=== PATIENT | female | born 1930 | race African-American/Black ===

== ENCOUNTER 2016-10-16 12:35 | Inpatient (IN) ==
[2016-10-16 13:36] LABS: BASO% 0.2 % (0.0-0.8); EOS# 0.08 X1000 (0.0-0.7); EOS% 0.4 % (0.0-10.0); HEMATOCRIT 35.9 % (37.0-47.0); HEMOGLOBIN 12.1 g/dL (12.0-16.0); IMM GRAN% 0.5 % (0.0-0.5); LYMPH# 0.76 X1000 (1.2-3.4); LYMPH% 4.2 % (20.5-51.1); MANUAL DIFF NEEDED? NO; MCHC 33.7 g/dL (33-37); MCV 89.1 FL (81-99); MONO% 8.7 % (1.7-9.3); MPV 9.8 FL (7.4-10.4); PLT 501 X1000 (130-400); RBC 4.03 XMIL (4.2-5.4)
[2016-10-16 14:28] LABS: AGAP 14; ALBUMIN 3.3 g/dL (3.5-5.0); ALKALINE PHOSPHATASE 110 U/L (32-104); BUN 19 mg/dL (8-22); CALCIUM 9.3 mg/dL (8.8-10.2); CHLORIDE 94 mmol/L (98-107); COSMO 273; GOT 26 U/L (10-30); GPT 19 U/L (10-36); POTASSIUM 3.9 mmol/L (3.5-5.1); SODIUM 134 mmol/L (136-145); TCO2 26 mmol/L (25-35); TOTAL PROTEIN 6.8 g/dL (6.3-8.3)
[2016-10-16 14:51] LABS: BILIRUBIN URINE NEGATIVE (NEGATIVE); BLOOD URINE 2+ (NEGATIVE); CLARITY SL. CLOUDY (CLEAR); COLOR AMBER; GLUCOSE URINE NEGATIVE (NEGATIVE); LEUKOCYTES URINE 1+ (NEGATIVE); NITRITE URINE NEGATIVE (NEGATIVE); PH URINE 6.5; PROTEIN URINE 1+(30 mg/dL) mg/dL (NEGATIVE); SP GRAVITY URINE 1.015; UROBILINOGEN URINE 1+(1 mg/dL)
[2016-10-16 14:58] LABS: URINE WBC <10 /HPF (<10)
[2016-10-16 14:59] LABS: URINE CULTURE PL NEEDED? YES; URINE EPITHELIAL CELLS >10 /HPF (<10); URINE SOURCE CLEAN CATCH
--- NOTE | 2016-10-16 16:10 | Diag Imaging Result Document ---
PROCEDURE NAME: ANGIOGRAM/PULMONARY ARTERIES - 10/16/2016 CTA CHEST: COMPARISON: 04/27/2016. FINDINGS: There is no evidence of pulmonary embolism. There is patchy aortic atherosclerotic calcification, but there is no evidence of aneurysm. The aorta is very tortuous and is stable. There is no evidence of aortic dissection. Similar to the previous study, there is mediastinal and hilar lymphadenopathy. It is nonspecific and may be reactive. There is stable cardiomegaly. There is advanced pulmonary emphysema. There is right basilar atelectasis as well as dense infiltrate in the right lower lobe. On the right, this is seen on the previous study but it is much less severe. There is atelectasis at the left lung base, but it is actually better than the previous study. There is a large focal density at the superior aspect of the left lower lobe that is vaguely masslike. This was not clearly present on the previous study. It measures about 4 x 2.6 cm axially. This certainly may represent a focal infectious consolidation. At least a repeat CT is recommended in 3 months based on [place] [employer] criteria, to assure resolution or stability. There is a smaller 1 cm nodule in the inferior left upper lobe on image 61 of series 6 that is approximately stable. There are severe scoliosis and degenerative changes. This is stable. IMPRESSION: 1. Severe emphysema. 2. Dense atelectasis and infiltrate at the right lung base and milder atelectasis at the left lung base. 3. Development of a vaguely masslike large rounded density at the superior aspect of the left lower lobe that certainly may be infectious. However, continued surveillance is recommended. Please see above discussion. 4. Stable, smaller nodule in the anterior aspect of the left upper lobe. 5. Mediastinal and hilar lymphadenopathy that is nonspecific but it is similar to the previous study and may be reactive. 6. No evidence of pulmonary embolism. 7. Other incidental/nonacute findings detailed above.
[2016-10-16] MEDS ORDERED: ROCEPHIN 1 GM/NS 1 GM/50 ML IVPB IV ONE (16:29)
[2016-10-16] MEDS ORDERED: ZITHROMAX 500 MG/NS 500 MG/250 ML IVPB IV SCH (16:30)
[2016-10-16] MEDS ORDERED: ROCEPHIN 1 GM/NS 1 GM/50 ML IVPB IV SCH (17:30)
[2016-10-16] MEDS ORDERED: LASIX PO PRN (20:06)
[2016-10-16] MEDS ORDERED: ZOFRAN IV PRN (20:07)
[2016-10-16] MEDS: NEURONTIN PO SCH (21:20)
[2016-10-16] MEDS: TYLENOL PO PRN (21:20)
[2016-10-16] MEDS: CARDIZEM CD PO SCH (21:20)
[2016-10-16] MEDS: LIORESAL PO SCH (21:21)
[2016-10-16] MEDS: ROCEPHIN 1 GM/NS 1 GM/50 ML IVPB IV SCH (21:22)
[2016-10-16] MEDS: NS 1,000 ML IV SCH (21:22)
[2016-10-17] MEDS: ULTRACET 37.5MG/325MG PO PRN (02:37)
[2016-10-17 06:03] LABS: HEMATOCRIT 32.3 % (37.0-47.0); HEMOGLOBIN 10.7 g/dL (12.0-16.0); MCH 29.8 PG (27-31); MCHC 33.1 g/dL (33-37); MPV 9.7 FL (7.4-10.4); RBC 3.59 XMIL (4.2-5.4)
[2016-10-17 06:38] LABS: AGAP 11; ALBUMIN 2.7 g/dL (3.5-5.0); ALKALINE PHOSPHATASE 115 U/L (32-104); BUN 10 mg/dL (8-22); CALCIUM 8.7 mg/dL (8.8-10.2); CHLORIDE 102 mmol/L (98-107); COSMO 277; GOT 26 U/L (10-30); GPT 19 U/L (10-36); POTASSIUM 3.6 mmol/L (3.5-5.1); SODIUM 139 mmol/L (136-145); TCO2 26 mmol/L (25-35); TOTAL PROTEIN 6.6 g/dL (6.3-8.3)
[2016-10-17] MEDS: NEURONTIN PO SCH ×3 (09:05→20:24)
[2016-10-17] MEDS: DITROPAN XL PO SCH ×2 (09:06→09:16)
[2016-10-17] MEDS: LIORESAL PO SCH ×3 (09:06→20:24)
[2016-10-17] MEDS: CARDIZEM CD PO SCH ×2 (09:06→20:24)
--- NOTE | 2016-10-17 11:00 | PROGRESS NOTE ---
DATE: 10/17/2016 SUBJECTIVE: The patient notes that she hurt all night because she did not have her pain medication this morning. Her daughter is concerned that she has not had her stool softener this morning; however, it is 6:30 in the morning. Otherwise, patient notes that her breathing is a little bit better. Denies any GI or issues currently. Denies any fevers overnight. OBJECTIVE: Vital signs: Temperature current 99.2, T-max 101.3 degrees at 8 p.m. on 10/16, pulse 109-114, respiratory 18, BP 180/89, saturation 93% on 3 L. General: Patient is awake, alert. She is currently in no respiratory distress. She is pleasant to talk with. Neck: Supple. CV: Regular rate. Chest: Much more improved than last night. No wheezing currently. Good air movement. Abdomen: Soft. Extremities: Moves all extremities. Neurologic: No changes. LABS: WBCs 15, hemoglobin and hematocrit 10 and 30. CMP normal. Micro growing gram-negative rods. Sputum culture pending. ASSESSMENT: 1. Urinary tract infection with gram-negative rods. Continue Rocephin. 2. Bilateral pneumonia. Continue Rocephin. 3. Chronic pain. Continue fentanyl. Will continue her laxative of choice. 4. Chronic neuropathy. 5. Hypertension. PLAN: We will continue patient's current medications. We will continue to follow her cultures. Continue to treat her for sepsis. Further orders as needed. cc: Richard Diallo MD
[2016-10-17] MEDS: COLACE PO SCH ×2 (11:57→20:24)
[2016-10-17] MEDS: NS 1,000 ML IV SCH (11:58)
--- NOTE | 2016-10-17 13:18 | HISTORY AND PHYSICAL ---
CHIEF COMPLAINT: Shortness of breath. HISTORY OF PRESENT ILLNESS: Patient is an 86-year-old, female, who presented to the emergency department with increased work of breathing, cough, congestion, shortness of breath. She notes that her symptoms have been going on for a day or two. They have continued to worsen. She has not been taking medications at home. Denies any production to her cough. States that she has been sick 3 or 4 days. However her story is very difficult to follow, because she then notes that a week or two ago she was coughing up blood and had some headaches. This continued to improve and then she started developing drainage, which apparently led to worsening shortness of breath 3-4 days ago. Although as noted, the story is very difficult to follow. She currently is on 3 L of oxygen at home. REVIEW OF SYSTEMS: As noted above. Hemoptysis 2 weeks ago, but apparently has resolved, but now she has a cough that is only occasionally productive of normal-colored sputum. Denies any chest pain, palpitations. Denies any current fevers or chills. Denies any dysuria, frequency, urgency. Denies any constipation, melena, hematochezia. Denies any weight loss or weight gain. Does note that she has chronic muscle aches, but this has not changed. PAST MEDICAL HISTORY: Hypertension. Chronic neuropathy. Chronic pain. ALLERGIES: No known drug allergies. MEDICATIONS: Baclofen t.i.d., Cardizem CD 180, Lasix 20, Neurontin 600 t.i.d., Ditropan 5 daily, fentanyl patch. She was recently started on Levaquin and tramadol. FAMILY HISTORY: Noncontributory. SOCIAL HISTORY: Patient lives at home. She is cared for by her family. Her primary care is ELEUTERIO Eduardo. PHYSICAL EXAMINATION: VITAL SIGNS: Temp 99, T-max 101.4 degrees, pulse 110, respiratory rate 10, BP 153/64 and sat 94% on 4 L. GENERAL: Patient is awake, alert. She is currently in minimal, if any, respiratory distress. Speech appears regular. Memory appears intact. NECK: Supple. CV: Regular rate. CHEST: Relatively clear. ABDOMEN: Soft. EXTREMITIES: Moves all extremities. NEUROLOGIC: No changes. LABS: WBCs 18, hemoglobin and hematocrit 12 and 35. D-dimer 5.2. Sodium 134, glucose 138, BNP 481, albumin 3.3. ASSESSMENT: 1. Urinary tract infection with microscopic red blood cells and white blood cells. 2. Leukocytosis. 3. Fever. 4. Sepsis, uncertain origin. Certainly could be from her dense lower lobe infiltrates and pneumonia, or could be from a urinary tract source. We will place her on antibiotics and follow. 5. Hypertension. 6. Chronic pain. 7. Bilateral lower lobe pneumonia. 8. Elevated D-dimer with a negative computed tomography angiogram. PLAN: We will check ultrasound of her bilateral lower extremities to rule out DVT and will follow. cc: Richard Diallo MD
[2016-10-17] MEDS: ROCEPHIN 1 GM/NS 1 GM/50 ML IVPB IV SCH (20:24)
[2016-10-17] MEDS: TYLENOL PO PRN (23:00)
[2016-10-18] MEDS: NS 1,000 ML IV SCH ×2 (01:20→14:59)
[2016-10-18 06:38] LABS: AGAP 10; ALBUMIN 2.5 g/dL (3.5-5.0); ALKALINE PHOSPHATASE 184 U/L (32-104); BUN 6 mg/dL (8-22); CALCIUM 8.7 mg/dL (8.8-10.2); CHLORIDE 102 mmol/L (98-107); COSMO 272; GOT 29 U/L (10-30); GPT 20 U/L (10-36); POTASSIUM 3.1 mmol/L (3.5-5.1); SODIUM 137 mmol/L (136-145); TCO2 26 mmol/L (25-35); TOTAL PROTEIN 6.4 g/dL (6.3-8.3)
[2016-10-18 06:58] LABS: HEMATOCRIT 31.2 % (37.0-47.0); HEMOGLOBIN 10.5 g/dL (12.0-16.0); MCH 30.3 PG (27-31); MCHC 33.7 g/dL (33-37); MCV 89.9 FL (81-99); MPV 9.5 FL (7.4-10.4); RBC 3.47 XMIL (4.2-5.4)
[2016-10-18] MEDS: CARDIZEM CD PO SCH ×2 (08:05→20:14)
[2016-10-18] MEDS: NEURONTIN PO SCH ×3 (08:05→20:14)
[2016-10-18] MEDS: COLACE PO SCH ×2 (08:05→20:14)
[2016-10-18] MEDS: DITROPAN XL PO SCH (08:05)
[2016-10-18] MEDS: LIORESAL PO SCH ×3 (08:05→20:14)
[2016-10-18] MEDS: ULTRACET 37.5MG/325MG PO PRN ×2 (08:55→20:28)
[2016-10-18] MEDS ORDERED: KLOR-CON PO ONE ×2 (09:01→11:15)
[2016-10-18] MEDS: DURAGESIC 12 MICROGM/HR PATCH TD SCH (11:04)
--- NOTE | 2016-10-18 13:04 | PROGRESS NOTE ---
DATE: 10/18/2016 SUBJECTIVE: The patient has no focal complaints. Still minimal cough. OBJECTIVE: Vital signs: Blood pressure 158/71, heart rate of 96, respiratory rate 18, temperature 99.3 degrees, temp up to 101.4. Cardiovascular: Regular rate and rhythm. Pulmonary: Diffuse rhonchi and wheezes. GI: Soft, nontender, nondistended. Bowel sounds are positive. Extremities: No clubbing or cyanosis. Lymphatics: No peripheral edema. PROBLEM LIST: 1. Pneumonia. We will continue treatment. She has been put on Rocephin, day 2, and we will continue azithromycin for atypical coverage. Continue pulmonary toilet and follow clinically. 2. Sepsis. Appears to be improving. White count is still elevated but has improved overall. 3. Hypokalemia. We will supplement and follow. 4. Protein calorie malnutrition. We will continue to monitor. Appetite, some stimulation as needed. 5. Disposition. She is very weak, debilitated at baseline. We will continue with physical therapy and decide about discharge planning accordingly. cc: Butch Vasquez MD
[2016-10-18] MEDS ORDERED: DUONEB (A & A) ONE (14:58)
[2016-10-18] MEDS: ZITHROMAX PO SCH (14:59)
[2016-10-18] MEDS: DUONEB (A & A) INH SCH ×2 (15:10→22:50)
[2016-10-18] MEDS: ROCEPHIN 1 GM/NS 1 GM/50 ML IVPB IV SCH (20:15)
[2016-10-19] MEDS: DUONEB (A & A) INH SCH ×4 (04:18→21:09)
[2016-10-19] MEDS: NS 1,000 ML IV SCH (04:40)
[2016-10-19] MEDS ORDERED: DURAGESIC 12 MICROGM/HR PATCH TD SCH (06:00)
[2016-10-19] MEDS ORDERED: DURAGESIC 100 MICROGM/HR PATCH TD SCH (06:00)
[2016-10-19] MEDS: CARDIZEM CD PO SCH ×2 (06:46→18:53)
[2016-10-19] MEDS: NEURONTIN PO SCH ×3 (06:46→18:53)
[2016-10-19] MEDS: LIORESAL PO SCH ×3 (06:46→18:53)
[2016-10-19] MEDS: ZITHROMAX PO SCH (06:46)
[2016-10-19] MEDS: DITROPAN XL PO SCH (06:46)
[2016-10-19] MEDS: COLACE PO SCH ×2 (06:49→20:19)
--- NOTE | 2016-10-19 07:06 | Extremity Venous Study ---
PROCEDURE NAME: Venous U/S Bilateral Legs - 10/17/2016 BILATERAL LOWER EXTREMITY VENOUS DOPPLER ULTRASOUND: COMPARISON: 04/28/2016. FINDINGS: The deep veins of the lower extremities are fully compressible. There is normal color and pulse wave Doppler signal. IMPRESSION: Negative exam.
[2016-10-19 10:23] LABS: HEMATOCRIT 33.1 % (37.0-47.0); HEMOGLOBIN 11.1 g/dL (12.0-16.0); MCH 29.9 PG (27-31); MCHC 33.5 g/dL (33-37); MCV 89.2 FL (81-99); MPV 8.7 FL (7.4-10.4); RBC 3.71 XMIL (4.2-5.4)
[2016-10-19 10:42] LABS: AGAP 11; BUN 5 mg/dL (8-22); CALCIUM 9.1 mg/dL (8.8-10.2); CHLORIDE 99 mmol/L (98-107); COSMO 271; POTASSIUM 3.6 mmol/L (3.5-5.1); SODIUM 136 mmol/L (136-145); TCO2 26 mmol/L (25-35)
[2016-10-19] MEDS ORDERED: LASIX IV ONE (11:24)
[2016-10-19] MEDS: ULTRACET 37.5MG/325MG PO PRN (12:35)
--- NOTE | 2016-10-19 13:25 | Diag Imaging Result Document ---
PROCEDURE NAME: CHEST-PORTABLE - 10/19/2016 PORTABLE CHEST X-RAY: COMPARISON: CT from 10/16/2016. FINDINGS: There is probably some improvement in the densely opacified right lower lobe. There is also left lower lobe infiltrate or mass-like opacity that is stable from prior. Background pulmonary vascularity is somewhat distended. There is COPD. There is mild cardiomegaly. IMPRESSION: Improvement in the dense right lower lobe consolidation/pneumonia. Otherwise, little change.
--- NOTE | 2016-10-19 13:31 | PROGRESS NOTE ---
DATE: 10/19/2016 SUBJECTIVE: Patient has no focal complaints. OBJECTIVE: Blood pressure was 167/73, heart rate 98, respiratory rate 20, temperature 98.3 degrees, 93% on 3 L.Cardiovascular: Regular rate and rhythm. Pulmonary: Bilateral breath sounds clear to auscultation. GI: Soft, nontender, nondistended. Bowel sounds are positive. Extremities: No clubbing or cyanosis. Lymphatics: No peripheral edema. Neurological: Nonfocal. LABORATORY DATA: Her white count is still elevated but improved, 13,000. Hemoglobin and hematocrit 11 and 33, platelets 647,000. Chemistries look okay. Potassium is back to a stable level. PROBLEM LIST: 1. Pneumonia. She is on Rocephin day 3 and erythromycin day 2. We will continue pulmonary toilet. I am going to repeat her chest x-ray and follow. 2. Sepsis has resolved. Still has some leukocytosis but overall improving. 3. Hypokalemia. Appears to be stable or is improved with supplementation. 4. Moderate protein calorie malnutrition. Continue some appetite stimulants. 5. Disposition. Patient is very weak. I really feel like she is total care at this point. Not quite sure how her baseline is. Because this patient does have a sitter and she does have local family, her closest daughter I think is in [place] and is talking about flying her out there but she is not stable for that at this point and I think she would most likely benefit from rehab. We are in discussions with the family concerning that. cc: Butch Vasquez MD
[2016-10-19] MEDS: ROCEPHIN 1 GM/NS 1 GM/50 ML IVPB IV SCH (20:19)
[2016-10-20] MEDS: ULTRACET 37.5MG/325MG PO PRN (01:29)
[2016-10-20] MEDS: DUONEB (A & A) INH SCH ×4 (04:06→22:01)
[2016-10-20] MEDS: NEURONTIN PO SCH ×3 (06:06→21:38)
[2016-10-20] MEDS: DITROPAN XL PO SCH (06:06)
[2016-10-20] MEDS: ZITHROMAX PO SCH (06:06)
[2016-10-20] MEDS: LIORESAL PO SCH ×3 (06:07→21:39)
[2016-10-20] MEDS: CARDIZEM CD PO SCH ×2 (06:07→17:59)
[2016-10-20 06:18] LABS: HEMATOCRIT 30.3 % (37.0-47.0); HEMOGLOBIN 10.1 g/dL (12.0-16.0); MCH 29.5 PG (27-31); MCHC 33.3 g/dL (33-37); MCV 88.6 FL (81-99); MPV 9.1 FL (7.4-10.4); RBC 3.42 XMIL (4.2-5.4)
[2016-10-20 06:49] LABS: AGAP 13; BUN 7 mg/dL (8-22); CALCIUM 8.7 mg/dL (8.8-10.2); CHLORIDE 100 mmol/L (98-107); COSMO 274; POTASSIUM 3.8 mmol/L (3.5-5.1); SODIUM 138 mmol/L (136-145); TCO2 26 mmol/L (25-35)
[2016-10-20] MEDS: COLACE PO SCH ×2 (09:42→21:38)
--- NOTE | 2016-10-20 13:01 | PROGRESS NOTE ---
DATE: 10/20/2016 SUBJECTIVE: Patient has no focal complaints. OBJECTIVE: Blood pressure 123/68, heart rate 86, respiratory rate 18, temperature 98.9 degrees,94% on 3 L.Cardiovascular: Regular rate and rhythm. Pulmonary: Bilateral breath sounds. Clear to auscultation. GI: Soft, nontender, nondistended. Bowel sounds are positive. Extremities: No clubbing or cyanosis. Lymphatics: No peripheral edema. Neurological: Nonfocal. LABORATORY DATA: White count 10. BUN and creatinine 7 and 0.4. PROBLEM LIST: 1. Pneumonia. Chest x-ray appears cleared. White count is normal. I think she is nearing the completion and she could probably be transitioned to oral medication. She is still requiring a decent amount of oxygen but I think she is on oxygen continuously. 2. Atrial fibrillation appears to be stable on current medications. 3. Hypokalemia that has resolved. DISPOSITION: Again I think patient is very weak and rehab would be a better option for her however patient does not want any rehab. She just wants to go home. We will set her up with home health and home physical therapy and anticipate discharge tomorrow if stable. cc: Butch Vasquez MD
[2016-10-20] MEDS: ROCEPHIN 1 GM/NS 1 GM/50 ML IVPB IV SCH (21:38)
[2016-10-21] MEDS: DUONEB (A & A) INH SCH ×4 (03:22→22:53)
[2016-10-21] MEDS: ULTRACET 37.5MG/325MG PO PRN ×3 (04:00→21:25)
[2016-10-21] MEDS: ZITHROMAX PO SCH (06:24)
[2016-10-21] MEDS: CARDIZEM CD PO SCH ×2 (06:24→18:17)
[2016-10-21] MEDS: NEURONTIN PO SCH ×3 (06:24→21:26)
[2016-10-21] MEDS: LIORESAL PO SCH ×3 (06:24→21:26)
[2016-10-21] MEDS: DITROPAN XL PO SCH (06:24)
[2016-10-21] MEDS: COLACE PO SCH ×2 (08:24→20:17)
[2016-10-21] MEDS: DURAGESIC 12 MICROGM/HR PATCH TD SCH (10:53)
--- NOTE | 2016-10-21 14:30 | PROGRESS NOTE ---
DATE: 10/21/2016 SUBJECTIVE: The patient is breathing more comfortably. No complaints. OBJECTIVE: Vital Signs: Blood pressure 141/62, heart rate of 85, respiratory rate 18, temperature 98.2 degrees, saturating 96% on 3 L. Cardiovascular: Regular rate and rhythm. Pulmonary: Bilateral breath sounds. Clear to auscultation. GI: Abdomen soft, nontender, nondistended. Bowel sounds are positive. LABORATORY DATA: White count of 10, hemoglobin and hematocrit 10 and 30. Platelets 662,000. Basic was negative. PROBLEM LIST: 1. Pneumonia left lower lobe I believe. Chest x-ray improved. White count is normal. She is on IV antibiotics. She is on Omnicef which she has been known for 6 days. 2. Chronic pain disorder. Appears to be well controlled. 3. Atrial fibrillation. Appears to be well controlled. DISPOSITION: Patient has now decided to go to rehab on Sunday. She has discussed it with her daughter and she is agreeable to go to [facility], so we will pursue that on Sunday and follow clinically. cc: Butch Vasquez MD
[2016-10-21] MEDS: ROCEPHIN 1 GM/NS 1 GM/50 ML IVPB IV SCH (20:13)
[2016-10-21] MEDS: NIZORAL 2% CREAM TOP SCH (21:27)
[2016-10-22] MEDS: DUONEB (A & A) INH SCH ×4 (03:41→22:46)
[2016-10-22 05:45] LABS: HEMATOCRIT 28.4 % (37.0-47.0); HEMOGLOBIN 9.7 g/dL (12.0-16.0); MCH 30.7 PG (27-31); MCHC 34.2 g/dL (33-37); MCV 89.9 FL (81-99); MPV 8.9 FL (7.4-10.4); RBC 3.16 XMIL (4.2-5.4)
[2016-10-22 06:04] LABS: AGAP 10; BUN 4 mg/dL (8-22); CALCIUM 8.7 mg/dL (8.8-10.2); CHLORIDE 102 mmol/L (98-107); COSMO 275; POTASSIUM 3.8 mmol/L (3.5-5.1); SODIUM 139 mmol/L (136-145); TCO2 27 mmol/L (25-35)
[2016-10-22] MEDS: DITROPAN XL PO SCH (06:12)
[2016-10-22] MEDS: CARDIZEM CD PO SCH ×2 (06:12→18:28)
[2016-10-22] MEDS: ZITHROMAX PO SCH (06:12)
[2016-10-22] MEDS: COLACE PO SCH ×2 (08:42→21:45)
[2016-10-22] MEDS: NEURONTIN PO SCH ×3 (08:42→21:45)
[2016-10-22] MEDS: LIORESAL PO SCH ×3 (08:43→21:45)
[2016-10-22] MEDS: NIZORAL 2% CREAM TOP SCH ×2 (08:46→21:47)
[2016-10-22] MEDS: ULTRACET 37.5MG/325MG PO PRN ×2 (08:46→23:22)
--- NOTE | 2016-10-22 14:31 | PROGRESS NOTE ---
DATE: 10/22/2016 SUBJECTIVE: The patient has no focal complaints. OBJECTIVE: Vital Signs: Stable. Blood pressure 160/90, heart rate of 76, respiratory rate 18, temperature 98.5 degrees, 95% on 3 L. Cardiovascular: Regular rate and rhythm. Pulmonary: Bilateral breath sounds. Clear to auscultation. GI: Soft, nontender, nondistended. Bowel sounds are positive. LABORATORY DATA: White count is normal but hemoglobin and hematocrit is 9 and 28, which has dropped since admission. Platelets at 770,000. This has been the lowest it has been since April. Chemistries look okay. PROBLEM LIST: 1. Pneumonia. She is on Rocephin and . Will discharge her on another 7 days of Omnicef. 2. Chronic pain disorder. She is on fentanyl patch. Will continue following her. 3. Atrial fibrillation. She is on her current medications. She is not anticoagulated and right now she appears to be dropping her hematocrit without hydration so I am not sure what is going on there. 4. Anemia. We will check folate, B12, iron levels, Hemoccult and follow. DISPOSITION: If things are stable I anticipate to rehab tomorrow once bed available. cc: Butch Vasquez MD
[2016-10-22] MEDS: MIRALAX PO SCH (21:43)
[2016-10-22] MEDS: ROCEPHIN 1 GM/NS 1 GM/50 ML IVPB IV SCH (21:45)
[2016-10-23] MEDS: DUONEB (A & A) INH SCH ×2 (03:39→11:02)
[2016-10-23 05:00] VITALS: BP 130/58
[2016-10-23 06:16] LABS: HEMATOCRIT 29.3 % (37.0-47.0); HEMOGLOBIN 9.6 g/dL (12.0-16.0); MCH 29.4 PG (27-31); MCHC 32.8 g/dL (33-37); MCV 89.9 FL (81-99); MPV 8.8 FL (7.4-10.4); RBC 3.26 XMIL (4.2-5.4)
[2016-10-23 06:27] LABS: IRON SATURATION 17 %; TIBC 218 ug/dL; TOTAL IRON 36 ug/dL (49-151); UNBOUND IRON 182 ug/dL (112-346)
[2016-10-23] MEDS: CARDIZEM CD PO SCH (06:50)
[2016-10-23] MEDS: DITROPAN XL PO SCH (06:50)
[2016-10-23] MEDS: NEURONTIN PO SCH (08:29)
[2016-10-23] MEDS: LIORESAL PO SCH (08:29)
[2016-10-23] MEDS: COLACE PO SCH (08:36)
[2016-10-23] MEDS: MIRALAX PO SCH (08:36)
--- NOTE | 2016-10-23 09:34 | DISCHARGE SUMMARY ---
ADMISSION DATE: 10/16/2016 DISCHARGE DATE: 10/23/2016 DIAGNOSES: 1. Bilateral pneumonia. 2. Sepsis secondary to pneumonia, resolved. 3. Hypertension. 4. Chronic pain. 5. Elevated D-dimer with negative CTA and lower extremity Doppler, bilateral. 6. Atrial fibrillation, controlled. 7. Anemia. DIAGNOSTICS: 1. On 10/16/2016, pulmonary arteriogram revealed no pulmonary embolus, severe emphysema, bilateral pneumonia, development of a vaguely masslike large rounded density at the superior aspect of the left lower lobe that may be infectious, although surveillance with repeat CT scan in 3 months recommended. Stable smaller nodule in the anterior aspect of the left upper lobe, present on 05/24/2016 CT. On 10/17/2016, bilateral lower extremity Doppler negative. 2. Microbiology: Blood cultures no growth after 48 hours x2. 3. Sputum culture revealed Klebsiella pneumoniae. HOSPITAL COURSE: Ms. Baum presented to the hospital complaining of shortness of breath. She was found to have bilateral pneumonia with sepsis. Blood cultures were negative. Sputum did grow out Klebsiella for which she was covered with azithromycin and Rocephin. She will be discharged on Omnicef. We did continue her home medications as appropriate. We trended electrolytes and repleted as appropriate. White count was noted to be 15 on admission. It is 9.4 today. She did improve throughout the hospitalization, although she did remain weak. She was evaluated by physical therapy who felt that rehab was appropriate for the patient. DISCHARGE PHYSICAL EXAMINATION: Cardiovascular: Regular rate and rhythm. S1 and S2 appreciated. Pulmonary: Breath sounds are clear with no increased work of breathing noted. Gastrointestinal: Soft, nontender, nondistended. Bowel sounds in all 4 quadrants. Neurologic: She is alert and oriented x3. DISCHARGE ACTIVITY: As per physical therapy and facility protocol. DISCHARGED DIET: Regular with Ensure with meals and at bedtime. DISCHARGE MEDICATIONS: Fentanyl patch 12 mcg every 72 hours, Omnicef 300 mg b.i.d. x7 days, baclofen 10 mg at 7:00 a.m., 2:30, and 9:30 p.m. Lasix 20 mg daily, oxybutynin ER 5 mg daily, Cardizem CD 180 mg b.i.d., gabapentin 600 mg at 7:00 a.m., 2:30, and 930. Ultracet 1 twice a day as needed. FOLLOWUP: 1. She needs to follow up with her primary care provider, ELEUTERIO Eduardo on discharge from rehab. 2. She needs to have a repeat CT scan of the chest to evaluate the nodules found in the left lower lobe as well as left upper lobe, in 3 months. This will be in January of 2017. This can be arranged by her primary care physician, Simi Damon. DISPOSITION: She is being discharged to rehab in stable condition with family members present. This is a greater than 30 minute discharge. Dictated by ELEUTERIO Luna for Butch Vasquez MD cc: ELEUTERIO Luna MD Jennifer Beatty, CRNP pt examined, day of discharge, is doing well, stable currently; pt reports dysphagia will get speech therapy to follow [facility]
[2016-10-23 09:36] LABS: FERRITIN 247 ng/mL (13-150)
--- NOTE | 2016-10-23 15:06 | DISCHARGE SUMMARY ---
ADMISSION DATE: 10/16/2016 DISCHARGE DATE: 10/23/2016 PHYSICIAN: Dr. Hugo Vasquez. DATE OF ADMISSION: 10/16/2016. TODAY'S DATE: 10/23/2016. DIAGNOSES: 1. Pneumonia, left lower lobe. 2. Sepsis, resolved. 3. Hypertension. 4. Chronic pain. 5. Elevated D-dimer with a negative CTA, as well as negative bilateral lower extremity Doppler. MICROBIOLOGY: Blood cultures x2: No growth after 5 days. Sputum culture: Revealed Klebsiella pneumoniae, pansensitive. DIAGNOSTICS: 10/16/2016 pulmonary arteriogram: Revealed: 1. Severe emphysema. 2. Dense atelectasis and infiltrate at the right lung base with atelectasis at the left lung base, but milder. 3. Development of a vagally masslike larger rounded density at the superior aspect of the left lower lobe that may be infectious. 4. Stable nodule in the anterior aspect of the left upper lobe. 5. No evidence of PE. 10/17/2016 bilateral lower extremity venous Doppler: Negative examination. 10/19/2016 chest x- ray: Improvement in the dense right lower lobe consolidation pneumonia. Otherwise, little change. HOSPITAL COURSE: Ms. Baum presented to the emergency room complaining of a shortness of breath. She was found to have bilateral pneumonia. Blood cultures were negative. She was started on Rocephin and Zithromax for IV antibiotic coverage. Her initial white count was 15. Today, it is 9. She has improved subjectively. With antibiotics as well as pulmonary toilet. She did present with sepsis secondary to pneumonia. This has resolved. We did identify and continue her home medications as appropriate. We trended electrolytes and repleted as appropriate. She does have a history of atrial fibrillation. This has been stable on her current medications. Her hemoglobin and hematocrit were 10 and 31 on admission. It has trended down to 9.6 and 29.3. With her current labs, it looks like she lives at 10 and 30 to 33. There has been no evidence of bleeding. She does have a history of chronic pain. We did continue her fentanyl patch, as well as her baclofen, which did control her pain well. She did have an elevated D-dimer. Bilateral lower extremity Dopplers as well as PE study were performed, which were both negative. Her CTA pulmonary revealed a 1 cm nodule on the inferior left upper lobe that was present on an examination in April of 2016. It also revealed a 4 x 2.6 cm large focal density at the superior aspect of the left lower lobe that, per radiology read, could represent a focal infectious consolidation. They did recommend a CT in 3 months for followup. DISCHARGE PHYSICAL EXAMINATION: Cardiovascular: Regular rate and rhythm. S1 and S2 appreciated. Pulmonary: Breath sounds are clear with no increased work of breathing noted. Gastrointestinal: Abdomen is soft, nontender, nondistended with bowel sounds in all 4 quadrants. Vital Signs: Blood pressure is 130/58 with a heart rate of 76, respirations 20, temperature 98.3 degrees oral with room air saturations of 94-98% on 3 L nasal cannula. DISCHARGE ACTIVITY: As per physical therapy and rehabilitation protocols. DISCHARGE MEDICATIONS: 1. Gabapentin 600 mg at 7, 2:30, and 9:30. 2. Baclofen 10 mg at 7, 2:30, and 9:30. 3. Cardizem CD 180 b.i.d. 4. Colace 100 mg b.i.d. 5. Tramadol 1 b.i.d. p.r.n. 6. Fentanyl 12 mcg patch every 72 hours. 7. MiraLAX 17 g p.o. b.i.d. 8. Ditropan XL 5 mg p.o. daily. 9. Omnicef 300 mg b.i.d. x7 days. FOLLOWUP CARE: 1. She will need to follow up with her primary care physician, Dr. Belcher , on discharge from rehabilitation. 2. She will need to have a repeat CAT scan of the chest in 3 months to re-evaluate. Dictated by ELEUTERIO Luna for Butch Vasquez MD cc: ELEUTERIO Luna MD
--- NOTE | 2016-10-24 10:18 | PROVIDER DOCUMENTATION ---
This chart was entered by Anca Dhaliwal Scribe, acting as scribe for Jadiel Ortega MD. HPI-Respiratory General - General Chief Complaint: Shortness of Breath Stated Complaint: SHORTNESS OF BREATH Time Seen by Provider: 10/16/16 13:04 Source: patient Allergies/Adverse Reactions: Patient Allergies Allergy/AdvReac Type Severity Reaction Status Date / Time No Known Allergies Allergy Verified 10/16/16 12:39 Home Medications: Home Medication List Medication Instructions Recorded Confirmed Last Taken Type Baclofen 10 mg PO TID@0700,1430,2130 04/27/16 10/22/16 Unknown History Diltiazem C.d. [Cardizem Cd] 180 mg PO BID 04/27/16 10/16/16 Unknown History Furosemide 20 mg PO DAILY PRN 04/27/16 10/16/16 Unknown History Gabapentin 600 mg PO TID@0700,1430,2130 04/27/16 10/22/16 Unknown History Oxybutynin E.r. [Ditropan Xl] 5 mg PO DAILY 04/27/16 10/16/16 Unknown History CefDINIR [Omnicef] 300 mg PO BID #14 capsule 10/22/16 Unknown Rx Fentanyl 1 each TD Q72H #30 patch.td72 10/22/16 Unknown Rx Fentanyl 12 Microgm/Hr Patch 1 each TD Q72H #10 patch 10/22/16 Unknown Rx [Duragesic 12 Microgm/Hr Patch] Tramadol/APAP [Ultracet 1 each PO BID PRN PRN #45 tablet 10/22/16 Unknown Rx 37.5MG/325Mg] - History of Present Illness-Resp Nature of Presenting Problem: Pt is 86 y/o F presents to the ED with SOB. Pt states the SOB has worsened. Pt denies F. Pt states she is on 3 L of O2 at home. Quality of Pain: reports: tightness Severity in ED: reports: mild Onset/Duration: reports: this morning Timing: reports: still present, getting worse Exposure: reports: unknown cause Cough Quality/Degree: reports: no cough Current Respiratory Medication Therapy: Initiated see nurses note Modifying Factors: improves with: nothing Associated Symptoms: reports: shortness of breath. denies: chest pain/soreness , cough, dizziness, earache, facial pain, fever/chills, flu-like symptoms, headache, heart racing, hurts to breathe, hyperventilating, lightheadedness, muscle/bodyaches, nasal congestion, nasal drainage, sinus pain, short of breath , sore throat, sweaty, wheezing Similar Symptoms Previously?: Yes Recently seen or treated by another doctor?: No Review of Systems - Adult - REVIEW OF SYSTEMS - ADULT Constitutional: reports: no symptoms reported Eyes: reports: no symptoms reported Ears, Nose, Mouth & Throat: reports: no symptoms reported Cardiovascular: reports: irregular heart rate (tachy). denies: chest pain, heart murmur Respiratory: reports: shortness of breath. denies: cough, wheezing Gastrointestinal: reports: no symptoms reported Genitourinary: reports: no symptoms reported Musculoskeletal: reports: no symptoms reported Integumentary: reports: no symptoms reported Neurological: reports: no symptoms reported Psychiatric: reports: no symptoms reported Endocrine: reports: no symptoms reported Hematologic/Lymphatic: reports: no symptoms reported Allergic/Immunologic: reports: no symptoms reported All Other Systems: Reviewed and Negative Past History - Adult - PAST MEDICAL HISTORY-ADULT Review of Records: reports: Nursing Assessment Review, Medications Reviewed, Social history reviewed & non-contributory. Major Childhood Illnesses: reports: denies history Cardiovascular: reports: HTN Respiratory: reports: denies history Gastrointestinal: reports: denies history Obstetrical/Gynecological: reports: denies history Genitourinary: reports: denies history Musculoskeletal: reports: denies history Neurological: reports: denies history Endocrine/Immune: reports: denies history Other Conditions: reports: denies history - PRIOR SURGERIES/PROCEDURES Surgical/Procedure History: reports: reviewed, not pertinent - IMMUNIZATION STATUS Childhood Immunizations: See Nurse Assessment Flu Vaccine: See Nurse Assessment - FAMILY HISTORY Family History: reviewed, not pertinent - SOCIAL HISTORY Smoking: quit greater than 1 year, cigarettes Substance Use: denies Living Situation: family Physical Exam-General - PHYSICAL EXAM-ADULT Initial Vital Signs Reviewed: Yes - CONSTITUTIONAL General Appearance: appears well, alert, no apparent distress - EYES Eyes: PERRL/EOMI, pink conjunctivae - HEAD, EARS, NOSE, MOUTH & THROAT HENMT: normocephalic/atraumatic, moist mucous membranes, normal ENT inspection, TMs normal, pharynx normal - NECK Neck: non-tender, full range of motion, supple, normal inspection - RESPIRATORY Respiratory: chest non-tender, lungs clear, normal breath sounds, no pleuratic chest pain, no respiratory distress, no accessory muscle use, increased rate - CARDIOVASCULAR Cardiovascular: normal peripheral pulses, no edema, no gallop, no JVD, no murmur , tachycardia - GASTROINTESTINAL (ABDOMEN) Abdominal Exam: normal bowel sounds, non tender, soft, no organomegaly, no pulsatile mass - LYMPHATIC Lymphatic: no adenopathy - MUSCULOSKELETAL Back Exam: normal inspection, no CVA tenderness, no vertebral tenderness Extremity: normal range of motion, non-tender, normal gait, normal inspection, no pedal edema, no calf tenderness, normal capillary refill, pelvis stable - SKIN Integumentary: normal color, normal turgor, warm/dry - NEUROLOGIC Neurologic: grossly normal - PSYCHIATRIC Psych/Mental Status: normal mood/affect, oriented x 3 Progress - PLAN OF CARE/RESULTS Progress/Plan/Lab Results: Orders Category Date Time Status Admit Patient To Inpatient Status Routine AdmDCTranf 10/16/16 16:48 Ordered ANGIOGRAM/PULMONARY ARTERIES [CT] Stat Exams 10/16/16 14:29 Completed BLOOD CULTURE [BLDCUL] Stat Lab 10/16/16 17:28 Completed CBC WITH ELECTRONIC DIFF [HEME] Stat Lab 10/16/16 13:15 Completed CMP [COMPREHENSIVE METABOLIC PANEL] [CHEM] Stat Lab 10/16/16 13:15 Completed Ddimer [D-DIMER PL] [COAG] Stat Lab 10/16/16 13:15 Completed LACTATE, PLASMA [CHEM] Stat Lab 10/16/16 17:28 Completed TROPONIN T Stat Lab 10/16/16 13:15 Completed UA NIMS W/REFLEX CULT PL [URINALYSIS] Stat Lab 10/16/16 14:35 Completed URINE CULTURE [RM] Routine Lab 10/16/16 14:59 Completed bnp [PRO B-NATRIURETIC PEPTIDE] Stat Lab 10/16/16 13:15 Completed Azithromycin 500 mg/Ns [Zithromax 500 mg/Ns] Med 10/16/16 16:30 Discontinued 500 mg in 250 ml IV Q24H CefTRIAXONE 1 GM/NS [Rocephin 1 gm/Ns] Med 10/16/16 17:30 Discontinued 1 gm in 50 ml IV DAILY CefTRIAXONE 1 GM/NS [Rocephin 1 gm/Ns] Med 10/16/16 16:29 Discontinued 1 gm in 50 ml IV NOW Transfer/Admit Order [TRANSFER] Routine Transfer 10/16/16 16:49 Completed Result Diagrams: 10/23/16 04:50 10/22/16 04:45 - CT/MRI 1 CT Study: Angiogram Impression: Abnormal (no PE. Dense lower lobe infiltrates suggesting pneumonia as well as atelectasis) - CONSULTS/PCP/HOSPITALIST Notification #1 *Consult/PCP/Hospitalist*: Dr. Diallo Time Discussed: 16:29 Reason/Comments: Dr. Ortega consults with Dr. Diallo about admit of Pt Consult Disposition: Admit Departure - Departure Time of Disposition Decision: 17:00 DIAGNOSIS: Bilateral pneumonia Qualifiers: Pneumonia type: due to unspecified organism Lung location: unspecified part of lung Qualified Code(s): J18.9 - Pneumonia, unspecified organism Disposition: ADMITTED INPATIENT 09 Certified Medical Emergency: Emergent Condition: Stable - Critical Care Note This patient required my direct & personal management of CC.: No This chart was documented by the indicated scribe, (Anca Dhaliwal Scribe) and accurately reflects the services I performed and decisions made by me, Jadiel Ortega MD, as attested by the provider's signature.
--- NOTE | 2016-11-21 16:27 | PROGRESS NOTE ---
DATE: 11/21/2016 We received the results of the patient's peripheral smear today 11/21/2016 which revealed reactive thrombosis of essential thrombocytopenia. If thrombocytopenia persists after treating iron deficiency a hematologic consult is recommended. ADDENDUM: Also differential diagnosis includes myelodysplastic syndrome with followup recommended. I did call Simi Damon the [employer] who is the patient's primary care provider, informed the office of this and faxed results to her office. Dictated by ELEUTERIO Luna for Butch Vasquez MD cc: ELEUTERIO Luna MD
== END 2016-10-23 14:24 ==
LOC: P.ED 12:35 → SUATTDRO 17:48 → P.MEDSURG 17:48
PROVIDERS: ATTEND Internal Medicine